=== PATIENT | male | born 1985 | race Two or more races ===

== ENCOUNTER 2017-12-11 23:03 | Inpatient (IN) | payer OTHER ==
[~2017-12-11] VITALS: Ht 172.7 cm; Wt 93.4 kg
[2017-12-14] MEDS ORDERED: PERCOCET 5-3251 EACH PO (09:15)
== END 2017-12-14 11:11 | disposition home or self-care (01) | DRG 340 ==
LOC: ER 23:03 → SEC-K 12-12 08:24 → O/R 12-12 14:32 → SURG 12-12 17:22
PROVIDERS: Surgery
PROC: 0DTJ4ZZ Resection of Appendix, Percutaneous Endoscopic Approach (ICD-10-PCS; principal; 2017-12-12 14:45)
DX: K35.3 Acute appendicitis with localized peritonitis (principal)